=== PATIENT | male | born 1970 | race Caucasian/White ===

== ENCOUNTER 2023-11-11 15:21 | Emergency (ER) | payer SELFPAY ==
[~2023-11-11] VITALS: Ht 167.6 cm; Wt 108.9 kg
[2023-11-11 16:05] VITALS: BP_SYST 135; PULSE 118; RESP 18; TEMP 98; O2SAT 98
[2023-11-11 17:06] VITALS: BP_SYST 142; PULSE 88; RESP 16; TEMP 98; O2SAT 98
== END 2023-11-11 17:15 | disposition home or self-care (01) ==
LOC: SED 15:21
DX: R22.41 Localized swelling, mass and lump, right lower limb (principal); M79.604 Pain in right leg; Z03.823 Encounter for observation for suspected inserted (injected) foreign body ruled out
CPT/HCPCS: 99281